=== PATIENT | female | born 1995 | race Asian ===

== ENCOUNTER 2019-01-09 21:51 | Emergency (ER) | payer SELFPAY ==
[~2019-01-09] VITALS: Ht 162.6 cm; Wt 61.0 kg
[2019-01-09] MEDS ORDERED: ONDANSETRON 4MG ODT PO ONE (22:15)
[2019-01-09] MEDS ORDERED: ONDANSETRON HCL 4MG/2ML INJ IV STA (22:17)
[2019-01-09] MEDS ORDERED: SODIUM CHLORIDE 0.9% 1,000 ML IV ONE (22:17)
[2019-01-10 00:26] VITALS: BP 106/67
== END 2019-01-10 00:27 | disposition home or self-care (01) ==
LOC: ER 21:51
DX: F10.129 Alcohol abuse with intoxication, unspecified (principal); F41.9 Anxiety disorder, unspecified; Y90.9 Presence of alcohol in blood, level not specified
CPT/HCPCS: 96361; 96374; 99283; J2405; J7030